=== PATIENT | male | born 1980 | race Caucasian/White ===

== ENCOUNTER 2017-05-04 15:16 | Emergency (ER) | payer SELFPAY ==
[~2017-05-04] VITALS: Ht 160 cm; Wt 89.0 kg
[~2017-05-04 15:16] MED LIST: CEPH-443 PO; POLY10DR19 LEFT EYE
[2017-05-04 15:18] VITALS: Ht 160 cm; Wt 89.0 kg
[2017-05-04] MEDS ORDERED: METOCLOPRAMIDE 10 MG INJ IV STA (15:51)
[2017-05-04] MEDS ORDERED: DIPHENHYDRAMINE 50 MG INJ IV STA (15:51)
[2017-05-04] MEDS ORDERED: SOD CHLORIDE 0.9% 1,000 ML IV STA (15:51)
[2017-05-04] MEDS ORDERED: KETOROLAC 30 MG INJ IV STA (15:51)
--- NOTE | 2017-05-04 16:19 | RADRPT ---
PROCEDURE: CT Brain without contrast. CLINICAL INDICATION: Headache TECHNIQUE: A CT of the brain was performed on a multidetector CT scanner utilizing axial imaging f rom the skull base through the vertex without IV contrast. Multiplanar reformatted images were made . Images were reviewed on a PACS workstation. The CTDIvol is 45 mGy and the DLP is 630 mGycm. Individualized dosed optimization technique was used for the performance of this exam. This included 1. Automated exposure control. 2. Adjustment of the mA and / or kV according to the patient's size. 3. The use of iterative reconstruction technique. COMPARISON: The FINDINGS: There is no intracranial hemorrhage, mass effect, or midline shift. No extra-axial fluid collection is seen. The ventricles and sulci are normal in size and configuration. There is cavum septum pellu cidum, normal anatomic variant. The density of the brain is normal, and the zuluaga white matter differ entiation appears well-preserved. The visualized paranasal sinuses and osseous structures are gross ly unremarkable. IMPRESSION: 1. No evidence of acute intracranial pathology. 2. The brain is normal in appearance. .Aric Martell MD MD Date Time Electronically viewed and signed by .Aric Martell MD, MD on 05/04/2017 16:19 .A/
--- NOTE | 2017-05-04 17:07 | ERD ---
ER Documentation Chief Complaint Date/Time DATE: 05/04/17 Chief Complaint Headache HPI The patient is a 36-year-old male, accompanied by family, who presents to the Emergency Department with complaint of headache. The patient reports that his headache is localized mostly to the right side of his head, and radiates from the right parietal and frontal region, towards the occipital region. He notes a history of mild headaches in the past, but states that the length of time in which he has been experiencing this headache is much longer than usual. The headache was [id number], and is similar in nature to his prior headaches. It comes and goes, though with no identified provoking or alleviating factors. He notes that until today, he did not taken any medication for pain relief. Approximately one hour ago, he decided to take Tylenol 500 mg PO x 1, though has not yet had any relief from the medication. He denies any fevers, sweats, chills, nausea, vomiting, photophobia, phonophobia. Denies dizziness, weakness, visual changes, diplopia, blurred vision, vision loss. Denies neck pain or neck stiffness. Denies recent URI symptoms or illness. Denies any other complaints at this time. Denies recent travel. He has no known drug allergies. ROS All systems reviewed and are negative except as per history of present illness. Medications Home Meds Active Scripts Ibuprofen* (Motrin*) 600 Mg Tab, 600 MG PO Q6, #30 TAB Prov:HARDIK HUMPHREY PA-C 05/04/17 Cephalexin* (Keflex*) 500 Mg Capsule, 500 MG PO QID for 5 Days, CAP Prov:MATHIEU RIVERS DO 05/16/16 Polymyxin B Sulfate-TMP* (Polymyxin B-TMP Eye Drops*) 10 Ml Drops, 1 DROP LEFT EYE QID for 7 Days, EA Prov:MATHIEU RIVERS DO 05/16/16 PMhx/Soc History of Surgery: No Anesthesia Reaction: No Hx Neurological Disorder: No Hx Respiratory Disorders: No Hx Cardiac Disorders: No Hx Psychiatric Problems: No Hx Miscellaneous Medical Probl: No Hx Alcohol Use: Yes Hx Substance Use: No Hx Tobacco Use: Yes (15) Smoking Status: Current every day smoker Physical Exam Vitals Vital Signs Date Time Temp Pulse Resp B/P Pulse Ox O2 Delivery O2 Flow Rate FiO2 05/04/17 15:18 98.1 90 18 153/90 99 Physical Exam GENERAL: Well-developed, well-nourished, in no acute distress HEENT: Head is normocephalic, atraumatic. No tenderness to palpation or percussion over frontal or maxillary sinuses. No scleral pallor or icterus. Pupils equal, round and reactive to light. Extraocular movements intact. Conjunctiva pink. Nares are patent bilaterally. Bilaterally tympanic membranes are clear with no evidence of erythema, effusion or dulling of the light reflex. No mastoid tenderness. Moist mucous membranes. No pharyngeal erythema or exudates. Uvula is midline. NECK: Supple. Trachea midline. No nuchal rigidity. Full range of motion. RESPIRATORY: Lungs are clear to auscultation bilaterally. Equal breath sounds. Normal expiratory effort. CARDIOVASCULAR: Regular rate and rhythm. S1 and S2 normal. No murmurs, rubs, or gallops. GASTROINTESTINAL: Abdomen is soft, nontender, and nondistended. Normal bowel sounds. FLANK: No CVA tenderness.. BACK: No midline tenderness. No paraspinal tenderness. EXTREMITIES: No clubbing, cyanosis, or edema. Normal skin perfusion. Moving all extremities. No focal swelling or erythema. Distal pulses are palpable, 2+ bilaterally. Capillary refill is less than 2 seconds. NEUROLOGIC: The patient is alert, awake, and oriented x 3. No focal neurologic deficits. Cranial nerves II-XII intact. Gait is observed and normal. There is no ataxia. Motor normal in all extremities. Sensation grossly intact. Coordination normal. Speech is normal. Normal sales and service change leader strength bilaterally. INTEGUMENT: Skin is clean, dry and intact. No rashes, lesions or petechiae present. Normal turgor. PSYCHIATRIC: Appropriate; Cooperative. Results 24 hrs Current Medications Medications (Trade) Dose Ordered Sig/Philipp Route PRN Reason Start Time Stop Time Status Last Admin Dose Admin Sodium Chloride (NS) 1,000 ml @ 1,000 mls/hr Q1H STAT IV 05/04/17 15:51 05/04/17 16:50 DC 05/04/17 15:58 Metoclopramide HCl (Reglan) 10 mg ONCE STAT IV 05/04/17 15:51 05/04/17 15:52 DC 05/04/17 15:58 Ketorolac Tromethamine (Toradol) 30 mg ONCE STAT IV 05/04/17 15:51 05/04/17 15:52 DC 05/04/17 15:58 Diphenhydramine HCl (Benadryl) 25 mg ONCE STAT IV 05/04/17 15:51 05/04/17 15:52 DC 05/04/17 15:58 Procedures/MDM EMERGENCY DEPARTMENT COURSE: The patient's case was reviewed and discussed with Dr. Pineda, who agrees with the plan of care including treatment and advanced imaging as appropriate. The patient was stable throughout the ED course. IV access established by nursing staff. CT head performed. Then, Toradol, Reglan, Benadryl and NaCl 1 L ordered. On reevaluation, the patient was resting comfortably, and reports significant relief of pain/symptoms. No further complaints. Requesting to be discharged home. DIAGNOSTIC TESTS AND INTERPRETATION: PROCEDURE: CT Brain without contrast. CLINICAL INDICATION: Headache TECHNIQUE: A CT of the brain was performed on a multidetector CT scanner utilizing axial imaging from the skull base through the vertex without IV contrast. Multiplanar reformatted images were made. Images were reviewed on a PACS workstation. The CTDIvol is 45 mGy and the DLP is 630 mGycm. Individualized dosed optimization technique was used for the performance of this exam. This included 1. Automated exposure control. 2. Adjustment of the mA and / or kV according to the patient's size. 3. The use of iterative reconstruction technique. COMPARISON: The FINDINGS:There is no intracranial hemorrhage, mass effect, or midline shift. No extra-axial fluid collection is seen. The ventricles and sulci are normal in size and configuration. There is cavum septum pellucidum, normal anatomic variant. The density of the brain is normal, and the zuluaga white matter differentiation appears well-preserved. The visualized paranasal sinuses and osseous structures are grossly unremarkable. IMPRESSION: 1. No evidence of acute intracranial pathology. 2. The brain is normal in appearance. .Aric Martell MD, MD Date Time Electronically viewed and signed by .Aric Martell MD, on 05/04/2017 16: 19 MEDICAL DECISION MAKING: This is a 36-year-old male presenting to the emergency department with a headache for the past 1 week. The patient had no significant abnormalities on physical examination, exhibited no altered mental status, neurologic deficits or meningeal signs. The differential diagnosis includes, but is not limited to , subarachnoid hemorrhage, intracerebral bleeding, cerebral aneurysm, meningitis , encephalitis, brain abscess, embolic stroke, brain tumor, temporal arteritis, sinusitis, migraine headache, tension headache, acute glaucoma, cluster headache , pseudotumor cerebri, encephalopathy. No acute abnormalities were noted on head CT ordered. His condition improved during her stay. After rest and administration of Toradol, Benadryl, Reglan and a liter of fluids the patient reports no new complaints and significantly decreased pain. Upon my review and interpretation of the patient's presentation and overall ER course, I believe the patient's symptoms are most consistent with a headache. Suspect benign etiology. Doubt meningitis, patients neck is supple, no fevers, no meningismus. Doubt TBI, no preceding trauma. Doubt subarachnoid hemorrhage, headache was not [id number], neck is supple. Doubt temporal arteritis, no jaw claudication, no visual changes. Doubt acute glaucoma, no consistent visual or ocular symptoms. Doubt mass or CVA based on neurologic examination. At this time, the patient is in stable condition and therefore can be discharged home with a prescription for Ibuprofen and given strict return precautions for signs of deteriorating or worsening condition. He is advised to follow up with a primary care provider for reevaluation and further management within 2-3 days, or to return to the ER sooner for any worsening symptoms. I shared my medical decision making and plan with the patient at length and in great detail, and the patient verbally understands and agrees with the plan for further observation and care as an outpatient. At the time of discharge, all questions were answered. SMOKING CESSATION: A discussion was held by me with the patient regarding smoking cessation. The risks of continued smoking, including hypertension, cardiac, cerebrovascular, and other end organ injury were discussed. Furthermore , the risk of emphysema, cancer, chronic bronchitis, and other pulmonary complications were emphasized. The risks and benefits of medical therapy including nicotine replacement therapy were discussed. The patient is strongly encouraged to pursue a smoking cessation program. Time spent in counseling 5 minutes. Departure Diagnosis: Primary Impression: Headache Headache type: unspecified Headache chronicity pattern: acute headache Intractability: not intractable Qualified Code: R51 - Acute nonintractable headache, unspecified headache type Condition: Stable Patient Instructions: Headache, Tension, Self-Care for Headaches Additional Instructions: Call your primary care doctor TOMORROW for an appointment during the next 2-3 days.See the doctor sooner or return here if your condition worsens before your appointment time. HARDIK HUMPHREY PA-C May 04, 2017 17:07
[2017-05-04] MEDS ORDERED: IBUP-1542 PO (17:13)
== END 2017-05-04 17:36 | disposition home or self-care (01) ==
LOC: FTE 15:16
DX: R51 Headache (principal); F17.210 Nicotine dependence, cigarettes, uncomplicated
CPT/HCPCS: 70450; 96374; 96375; 99285; J1200; J1885; J2765; J7030